=== PATIENT | female | born 1940 | race Caucasian/White ===

== ENCOUNTER 2016-07-21 18:09 | Emergency (ER) | payer MEDICARE, OTHER ==
[2016-07-21 18:24] VITALS: BP 154/80
[2016-07-21] MEDS ORDERED: Diphtheria,Pertussis(Acell),Tetanus Vaccine 0.5 ML SDV IM ONE (18:33)
[2016-07-21] MEDS ORDERED: Lidocaine 1% with EPINEPHrine 1:100,000 20 ML MDV INJECT ONE (19:10)
[2016-07-21] MEDS ORDERED: Bacitracin/Neomycin/Polymyxin B Oint 0.9 GM U/D Packet TOP ONE (19:10)
--- NOTE | 2016-07-21 19:12 | EDM.PDOC ---
ED HPI GENERAL MEDICAL PROBLEM - General Chief Complaint: Laceration Stated Complaint: LEFT HAND INJURY Time Seen by Provider: 07/21/16 18:52 Source of Information: Reports: Patient History Limitations: Reports: No Limitations - History of Present Illness INITIAL COMMENTS - FREE TEXT/NARRATIVE: Patient presents with left hand laceration that occurred shortly prior to ER arrival, when she fell in her yard and hit her hand on a nail. She denies numbness, LOC, vision changes, leg pain, arm pain. 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 No heart or lung problems. Tetanus needs updated. Treatments PLACING JUDGE: Reports: Dressing(s) Left Hand Pain Score (Numeric/FACES): 5 - Related Data Allergies Allergy/AdvReac Type Severity Reaction Status Date / Time No Known Drug Allergies Allergy Cannot Verified 07/21/16 18:24 Remember Home Meds: Home Meds Acetaminophen [Tylenol Extra Strength] 1 tab PO Q6H PRN 07/21/16 [History] Atenolol [Tenormin] 1 tab PO BID 07/21/16 [History] Ca/D3/Mag Ox/Zinc/Supervisor [employer]/Moose/Bor [Calcium 600-D3 Plus Caplet] 1 tab PO DAILY 07/21 [History] Celecoxib [CeleBREX] 200 mg PO DAILY 07/21/16 [History] Docusate Sodium [Colace] 1 cap PO DAILY PRN 07/21/16 [History] HCTZ/Triamterene [Maxzide 25-37.5 MG] 1 tab PO DAILY 07/21/16 [History] Hydrochlorothiazide 1 tab PO DAILY PRN 07/21/16 [History] Omeprazole 1 tab PO DAILY 07/21/16 [History] Oxybutynin Chloride 1 tab PO DAILY PRN 07/21/16 [History] Ubidecarenone [Co Q10] 400 mg PO DAILY 07/21/16 [History] Warfarin Sodium [Coumadin] 7.5 mg PO MOWEFR 07/21/16 [History] Warfarin [Coumadin] 5 mg PO SUTUTHFRSA 07/21/16 [History] Past Medical History HEENT History: Reports: Cataract Cardiovascular History: Reports: Blood Clots/VTE/DVT, Hypertension, Other (See Below) Other Cardiovascular History: 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 Gastrointestinal History: Reports: Chronic Constipation, GERD, Irritable Bowel Syndrome Genitourinary History: Reports: Other (See Below) Other Genitourinary History: overactive bladder Musculoskeletal History: Reports: Arthritis Neurological History: Reports: None Oncologic (Cancer) History: Reports: Basal Cell Carcinoma - Infectious Disease History Infectious Disease History: Reports: Chicken Pox, Measles - Past Surgical History Head Surgeries/Procedures: Reports: None HEENT Surgical History: Reports: Adenoidectomy, Cataract Surgery, Tonsillectomy Cardiovascular Surgical History: Reports: None GI Surgical History: Reports: Colonoscopy, EGD, Polypectomy Female Surgical History: Reports: Hysterectomy, Other (See Below) Other Female Surgeries/Procedures: anterior posterior uterine surgery Neurological Surgical History: Reports: Other (See Below) Other Neurological Surgeries/Procedures: kyphoplasty Musculoskeletal Surgical History: Reports: Other (See Below) Other Musculoskeletal Surgeries/Procedures:: right ankle replaced Oncologic Surgical History: Reports: Other (See Below) Other Oncologic Surgeries/Procedures: biopsy of nose Dermatological Surgical History: Reports: Skin Biopsy, Other (See Below) Social & Family History - Family History Family Medical History: Noncontributory - Tobacco Use Smoking Status *Q: Never Smoker Second Hand Smoke Exposure: No - Caffeine Use Caffeine Use: Reports: Coffee - Recreational Drug Use Recreational Drug Use: No ED ROS GENERAL - Review of Systems Review Of Systems: See Below Constitutional: Denies: Fever, Chills HEENT: Denies: Hearing Loss, Throat Pain, Vision Change Respiratory: Denies: Shortness of Breath Cardiovascular: Denies: Chest Pain, Lightheadedness, Syncope GI/Abdominal: Denies: Abdominal Pain, Nausea, Vomiting : Denies: Dysuria, Flank Pain Musculoskeletal: Denies: Neck Pain, Shoulder Pain, Arm Pain, Back Pain, Leg Pain Skin: Denies: Cyanosis, Jaundice, Mottled, Pallor, Diaphoresis Neurological: Denies: Confusion, Dizziness, Headache, Seizure, Syncope, Trouble Speaking Psychiatric: Denies: Agitation, Anxiety, Confusion Hematologic/Lymphatic: Reports: Easy Bleeding (on warfarin) ED EXAM, SKIN/RASH Exam: See Below Exam Limited By: No Limitations General Appearance: Alert, WD/WN, No Apparent Distress Eye Exam: Bilateral Eye: EOMI, Normal Inspection, PERRL Ears: Normal External Exam, Hearing Grossly Normal Nose: Normal Inspection, No Blood. No: Nasal Drainage Throat/Mouth: Normal Inspection, Normal Lips, Normal Voice, No Airway Compromise Head: Atraumatic, Normocephalic Neck: Normal Inspection, Supple, Non-Tender, Full Range of Motion Respiratory/Chest: No Respiratory Distress, Lungs Clear, Normal Breath Sounds, No Accessory Muscle Use Cardiovascular: Regular Rate, Rhythm, No Murmur GI/Abdominal: Soft, Non-Tender Back Exam: No: CVA Tenderness (L), CVA Tenderness (R) Extremities: Normal Range of Motion, Non-Tender, Other (At proximal left thenar eminence there is a 2.0 cm V-shaped laceration. It is fairly superficial but extends into the muscle centrally. No nerve or vascular involvement. Thumb opposition strength is 5/5. Sensation is completely intact. ) Neurological: Alert, Oriented, Normal Cognition, No Motor/Sensory Deficits Psychiatric: Normal Affect, Normal Mood Skin: Warm, Dry, Normal Color, No Rash ED SKIN PROCEDURES - Laceration/Wound Repair Left Anterior Proximal Hand Lac/wound length in cm: 2 Appearance: subcutaneous, muscle, clean Distal NVT: neuro & vascular intact, no tendon injury Anesthetic Type: local Local anesthesia - Lidocaine (Xylocaine): 1% with epi Local anesthetic volume: 2cc Skin prep: providone-iodine (betadine), saline Saline irrigation (cc's): 60 Exploration/Debridement/Repair: wound explored, explored to base, minimal debridement Closed with: sutures Suture size: other (5-0) # of sutures: 6 Suture type: nylon, interrupted Drain placement: No Sterile dressing applied: nurse Tetanus status addressed: Yes Complications: No Course - Vital Signs Last Recorded V/S: Last Vital Signs Temp 97.2 F 07/21/16 18:22 Pulse 64 07/21/16 18:22 Resp 16 07/21/16 18:22 BP 154/80 H 07/21/16 18:22 Pulse Ox 94 L 07/21/16 18:22 - Orders/Labs/Meds Orders: Active Orders 24 hr Category Date Time Status Vaccines to be Administered [RC] PER UNIT ROUTINE Care 07/21/16 18:33 Active Meds: Medications Discontinued Medications Generic Name Dose Route Start Last Admin Trade Name Freq PRN Reason Stop Dose Admin Diphtheria/Tetanus/Acell Pertussis 0.5 ml 07/21/16 18:33 07/21/16 18:50 Adacel IM 07/21/16 18:34 0.5 ml .ONCE ONE Administration - Re-Assessments/Exams Free Text/Narrative Re-Assessment/Exam: 07/21/16 19:36 Patient remained stable throughout ER course. Sterile technique was used throughout closure procedure and patient tolerated it well. TDAP was administered. Discussed discharge plan with patient. Departure - Departure Time of Disposition: 19:26 Disposition: Home, Self-Care 01 Condition: good Clinical Impression: Hand laceration Qualifiers: Encounter type: initial encounter Foreign body presence: without foreign body Laterality: left Qualified Code(s): S61.412A - Laceration without foreign body of left hand, initial encounter - Discharge Information Instructions: Laceration Care, Adult, [id number] Forms: ED Department Discharge Additional Instructions: 1. Keep wound clean and dry until you get stitches removed in about ten days. 2. Recheck BJ if fever, redness or any other signs of infection develop. 3. See your PCP in ten days for suture removal. - My Orders Last 24 Hours: My Active Orders 07/21/16 18:33 Vaccines to be Administered [RC] PER UNIT ROUTINE - Assessment/Plan Last 24 Hours: My Active Orders 07/21/16 18:33 Vaccines to be Administered [RC] PER UNIT ROUTINE
== END 2016-07-21 19:30 | disposition home or self-care (01) ==
LOC: KA.ED 18:09
DX: S61.412A Laceration without foreign body of left hand, initial encounter (principal); I10 Essential (primary) hypertension; K21.9 Gastro-esophageal reflux disease without esophagitis; M19.90 Unspecified osteoarthritis, unspecified site; Z90.710 Acquired absence of both cervix and uterus; Z98.890 Other specified postprocedural states; Z79.899 Other long term (current) drug therapy; Z79.01 Long term (current) use of anticoagulants; Z98.49 Cataract extraction status, unspecified eye; Z96.661 Presence of right artificial ankle joint; W18.30XA Fall on same level, unspecified, initial encounter; Y92.096 Garden or yard of other non-institutional residence as the place of occurrence of the external cause
CPT/HCPCS: 12001; 90471; 90715; 99282